=== PATIENT | female | born 1950 | race Caucasian/White ===

== ENCOUNTER 2020-10-11 07:59 | Emergency (ER) | payer OTHER ==
[~2020-10-11] VITALS: Ht 165.1 cm; Wt 131.5 kg
[~2020-10-11 07:59] MED LIST: ADVAIR 250-501 EACH INH; ALBUTEROL2.5 MG/0.5 INH; ARTIFICIAL TEA1 EACH OP; ASPIR 8181 MG PO; DOCUSIL100 MG PO; FLEXERIL PO; GLUCOPHAGE500 MG PO; IBUPROFEN 400400 M2 PO; LANTUS SUBQ; LASIX 40 MG TAB40 MG PO; LEVAQUIN 500 M500 MG PO; LISINOPRIL-HCT1 EAC1 PO; MINOCIN50 MG PO; MIRALAX17 GM PO; MOBIC7.5 M1 PO; MOBIC7.5 MG PO; MS CONTIN60 MG PO; MUCINEX TA600 MG/TA2 PO; NAPROSYN500 MG PO; NOVOLOG100 UNIT/1 SUBQ; OXYCONTIN20 MG PO; PERCOCET 5-3251 EACH PO; POTASSIUM20 PO; PROAIR HFA8.5 GM INH; SEROQUEL 50 MG50 MG PO; SERTRALINE HCL50 MG PO; SPIRIVA INH; TRIAMCINOLONE A80 G2 TOP; TYLENOL325 MG PO; XANAX 0.5 MG0.5 MG PO; ZANTAC 150MG T150 M1 PO; ZANTAC 150MG T150 MG PO
[2020-10-11] MEDS ORDERED: PEPCID20 MG PO (08:32)
[2020-10-11 08:34] LABS: BASOPHILS 0.5 % (0.0-2.0); HEMATOCRIT 47.6 % (37.0-47.0); HEMOGLOBIN 15.9 gm/dL (12.0-15.0); LYMPHOCYTES 14.1 % (24.0-44.0); MCH 30.4 pg (26.0-34.0); MCHC 33.5 g/dL (28.0-37.0); MCV 90.8 fL (80.0-100.0); MONOCYTES 5.1 % (1.0-8.0); PLATELET COUNT 251 thou/uL (150-400); POLYS 80.3 % (36.0-66.0); RBC 5.24 mil/uL (4.20-5.00); RDW 14.5 % (10.5-14.5); WBC 7.4 thou/uL (4.0-11.0)
[2020-10-11] MEDS ORDERED: LANTUS SUBQ (08:34)
[2020-10-11] MEDS ORDERED: [UNRECOGNIZED DRUG - OTHER] PO (08:35)
[2020-10-11] MEDS ORDERED: MELATONIN3 M1 PO (08:35)
[2020-10-11] MEDS ORDERED: ZOCOR 10 MG TAB10 M1 PO (08:37)
[2020-10-11] MEDS ORDERED: MUCINEX600 MG PO (08:37)
[2020-10-11] MEDS ORDERED: FLUTICASONE-SA1 EAC4 INH (08:42)
[2020-10-11] MEDS ORDERED: SEROQUEL 100 M100 M1 PO (08:43)
[2020-10-11 08:44] LABS: BE(vivo) 4.2 mmol/L (-2 to +3); HCO3 28.5 mmol/L (22.0-26.0); PCO2 41.6 mmHg (35.0-45.0); PO2 81.7 mmHg (80.0-100.0); pH 7.454 (7.360-7.450); sO2 96.5 % (92.0-98.0)
[2020-10-11 08:47] LABS: ANION GAP 8 mmol/L (7-16); BUN 12 mg/dL (7-18); CALCIUM 8.8 mg/dL (8.5-10.1); CHLORIDE 98 mmol/L (98-107); CO2 30 mmol/L (21-32); GLUCOSE 131 mg/dL (74-106); POTASSIUM 4.3 mmol/L (3.5-5.1); SODIUM 136 mmol/L (136-145)
[2020-10-11 08:55] LABS: TROPONIN-I <0.06 ng/mL (<0.06)
--- NOTE | 2020-10-11 09:53 | EKG ---
[address] [employer] [place] [address] ELECTROCARDIOGRAM REPORT Name: BOBBY KENNY Room #: [facility] PARK[facility]#: [id number] Admission: 10/11/20 Attend Phys: Discharge: Date of : 54 Report #: [id number] [facility] ED Test Date: 2020-10-11 Test Time: 08:13:26 Pat Name: BOBBY KENNY Department: Room: Gender: F [employer] Hand: kf : 1950 Requested By: Shane Forbes Order Number: [id number] MD: Otto Patel Measurements Intervals [place] Rate: 101 P: 47 CA: 51 QRS: 24 QRSD: 94 T: 30 QT: 310 QTc: 402 Interpretive Statements Sinus tachycardia Low voltage, precordial leads Baseline wander in lead(s) V1 Compared to ECG 05/11/2012 22:15:58 Low QRS voltage now present Sinus rhythm no longer present Left-axis deviation no longer present Electronically Signed On 10-11-2020 9:53:42 [employer] by Otto Patel [email or web address] <ELECTRONICALLY SIGNED> By: Otto Patel MD, [facility] 10/11/20 0953 2 2 Otto Patel MD, [facility] /EPI
[2020-10-11 10:37] LABS: URINE BILIRUBIN NEGATIVE (Negative); URINE BLOOD NEGATIVE (Negative); URINE CLARITY CLEAR; URINE COLOR YELLOW; URINE GLUCOSE-RANDOM* NEGATIVE (Negative); URINE KETONES NEGATIVE (Negative); URINE LEUKOCYTES-REFLEX NEGATIVE (Negative); URINE NITRITE-REFLEX NEGATIVE (Negative); URINE PROTEIN (DIPSTICK) NEGATIVE (Negative)
[2020-10-11 12:25] VITALS: BP 147/76
== END 2020-10-11 12:25 | disposition home or self-care (01) ==
LOC: ER 07:59
PROVIDERS: Emergency Medicine
DX: U07.1 COVID-19 (principal); J44.9 Chronic obstructive pulmonary disease, unspecified; E11.9 Type 2 diabetes mellitus without complications; K21.9 Gastro-esophageal reflux disease without esophagitis; M19.90 Unspecified osteoarthritis, unspecified site; G89.29 Other chronic pain; I10 Essential (primary) hypertension; F17.210 Nicotine dependence, cigarettes, uncomplicated; Z79.4 Long term (current) use of insulin; Z79.899 Other long term (current) drug therapy; Z98.51 Tubal ligation status; Z87.01 Personal history of pneumonia (recurrent); Z99.81 Dependence on supplemental oxygen